=== PATIENT | male | born 1940 | race Caucasian/White ===

== ENCOUNTER 2017-02-22 10:57 | Emergency (ER) | payer OTHER ==
[~2017-02-22] VITALS: Ht 167.6 cm; Wt 89.0 kg
[~2017-02-22 10:57] MED LIST: ACET-1256 PO; AMLO10TA4 PO; ASPI81TA28 PO; ATOR10TA88 PO; FINA5TAB PO; LPR25 PO; MULT-506 PO; TAMS0.4C38 PO; ULT50X PO
[2017-02-22 10:59] VITALS: TEMP 36.4; Ht 167.6 cm; Wt 89.0 kg
[2017-02-22] MEDS ORDERED: LISI-461 PO (11:24)
--- NOTE | 2017-02-22 11:48 | DIAGNOSTIC IMAGING REPORT ---
CHEST ONE VIEW PORTABLE CLINICAL HISTORY: Altered mental status. Weakness. COMPARISON STUDY: Chest radiograph March 27, 2015 and CTA of the chest, abdomen and pelvis January 04, 2016. FINDINGS: Lung volumes are normal. No pneumothorax or pleural effusion is present. There is no evidence of pulmonary edema. Pulmonary vascularity is normal. Cardiomediastinal silhouette is stable. Left hilar prominence is noted.. IMPRESSION: 1. Left hilar prominence which has developed since prior exam. This is likely due to to pulmonary vessels however lymphadenopathy or mass could appear similar. Follow-up PA and lateral chest radiographs are recommended. 2. No acute cardiopulmonary findings. Electronically signed by: Pardeep Beltran M.D. 02/22/2017 11:47 AM Dictated Date/Time: 02/22/2017 11:44 AM
[2017-02-22 12:00] LABS: PROTHROMBIN TIME (PATIENT) 11.1 SECONDS (9.0-12.0)
--- NOTE | 2017-02-22 12:08 | DIAGNOSTIC IMAGING REPORT ---
HEAD CT NONCONTRAST CT DOSE: 638.56 mGycm HISTORY: EVALUATE ALTERED MENTAL STATUS/WEAKNESS TECHNIQUE: Multiaxial CT images of the head were performed without the use of intravenous contrast. Automated exposure control was utilized for this study. A dose lowering technique was utilized adhering to the principles of ALARA. Comparison: None. Findings: The paranasal sinuses and mastoid air cells are clear. The calvarium and skull base are intact. There is no mass, hematoma, midline shift, acute infarct. White matter hypodensity is nonspecific but suggestive of microvascular ischemic change. The ventricles and sulci demonstrate mild age-related involutional changes. Impression: No acute intracranial abnormality. Atrophy and microvascular ischemic changes. Electronically signed by: Laci Cardoza M.D. 02/22/2017 12:07 PM Dictated Date/Time: 02/22/2017 11:51 AM
[2017-02-22 12:10] LABS: ALT/SGPT 34 U/L (12-78); AST/SGOT 20 U/L (15-37); BLOOD UREA NITROGEN 18 mg/dl (7-18); BUN/CREATININE RATIO 15.1 (10-20); CALCIUM 9.6 mg/dl (8.5-10.1); CARBON DIOXIDE 28 mmol/L (21-32); CHLORIDE 106 mmol/L (98-107); GLUCOSE 101 mg/dl (70-99); MAGNESIUM 2.4 mg/dl (1.8-2.4); SODIUM 139 mmol/L (136-145)
[2017-02-22 12:14] LABS: HEMATOCRIT 43.8 % (42-52); MEAN CELL VOLUME 87.8 fL (80-100); MEAN CORPUSCULAR HEMOGLOBIN 30.9 pg (25-34); MEAN CORPUSCULAR HGB CONC 35.2 g/dl (32-36); MEAN PLATELET VOLUME 11.9 fL (7.4-10.4); PLATELET COUNT 94 K/uL (130-400); RED BLOOD COUNT 4.99 M/uL (4.7-6.1); WHITE BLOOD COUNT 7.31 K/uL (4.8-10.8)
[2017-02-22 12:18] LABS: ALKALINE PHOSPHATASE 106 U/L (45-117)
[2017-02-22 12:27] LABS: BASO % 0.5 %; BASO ABS # 0.04 K/uL (0-0.2); COMPLETE YES; EOS % 4.7 %; IG% 0.1 %; LYMPH % 28.6 %; LYMPH ABS # 2.09 K/uL (1.2-3.4); MONO % 10.8 %; NEUT % 55.3 %
[2017-02-22 12:44] LABS: URINE APPEARANCE CLEAR (CLEAR); URINE BILIRUBIN NEG (NEG); URINE COLOR YELLOW; URINE EPITHELIAL CELL AUTO 0-5 /lpf (0-5); URINE NITRITE NEG (NEG); URINE SPECIFIC GRAVITY 1.015 (1.000-1.030); UROBILINOGEN NEG (NEG); ZZUR CULT IF INDIC CLEAN CATCH NO
[2017-02-22 12:48] LABS: MANUAL MICROSCOPIC REQUIRED? NO; REVIEW REQ? NO
--- NOTE | 2017-02-22 14:21 | DIAGNOSTIC IMAGING REPORT ---
CAROTID ARTERY ULTRASOUND CLINICAL HISTORY: Dizziness. COMPARISON STUDY: None. TECHNIQUE: Real-time, grayscale, and color Doppler sonography of the carotid and vertebral arteries was performed. Images were viewed in the transverse and longitudinal planes. FINDINGS: There is mild atherosclerotic plaque. Velocity measurements are listed below. COMMON CAROTID PEAK SYSTOLIC VELOCITY (CM/S): RIGHT 48 LEFT 66 ICA PEAK SYSTOLIC VELOCITY (CM/S): RIGHT 71 LEFT 59 The systolic ratios between the internal to common carotid arteries are normal. Antegrade flow is seen in the vertebral arteries. The external carotid arteries are patent. Blood pressure in the right arm measured 140/80. Blood pressure in the left arm measured 135/75. IMPRESSION: No evidence of a hemodynamically significant stenosis. Electronically signed by: Pardeep Beltran M.D. 02/22/2017 2:20 PM Dictated Date/Time: 02/22/2017 2:18 PM
[2017-02-22] MEDS ORDERED: MECL1TAB42 PO (14:29)
--- NOTE | 2017-02-22 14:29 | EMERGENCY ROOM VISIT NOTE ---
History Report prepared by Carlita: Kenneth Patel Under the Supervision of: Dr. Gume Jara D.O. First contact with patient: 11:07 Chief Complaint: DIZZY Stated Complaint: DIZZINESS History of Present Illness The patient is a 76 year old male who presents to the Emergency Room with complaints of intermittent dizziness that last a few minutes, and it started four days ago. The patient states that he has these dizziness spells about 4-5 times per day. He states that he had an episode this morning when getting up to go to the bathroom after laying down, and he has gotten a few more since then. The patient states that it feels like the room is almost spinning. He is additionally complaining of some posterior neck pain. The patient denies any chest pain, back pain, weakness in his arms or legs, or slurred speech. He states that he has an aortic aneurysm, and he has a graft in. Source of History: patient Onset: four days ago Position: other (global) Quality: other (dizziness) Timing: intermittent Associated Symptoms: No chest pain, No back pain, No weakness Review of Systems See HPI for pertinent positives & negatives. A total of 10 systems reviewed and were otherwise negative. Past Medical & Surgical Medical Problems: (1) BPH (benign prostatic hyperplasia) (2) Chronic ITP (idiopathic thrombocytopenia) (3) CKD (chronic kidney disease), stage III (4) HLD (hyperlipidemia) (5) HTN (hypertension) (6) Intramural aortic hematoma Surgical Problems: (1) H/O repair of left rotator cuff (2) H/O repair of right rotator cuff (3) History of arthroscopy of right shoulder (4) S/P AAA repair (5) S/P left knee arthroscopy (6) S/P surgical manipulation of ankle joint (7) S/P tonsillectomy (8) S/P vasectomy Family History Cancer Heart disease Hypertension Lung disease Social History Smoking Status: Former Smoker Alcohol Use: none Drug Use: none Marital Status: Housing Status: lives with family Occupation Status: retired Current/Historical Medications Scheduled Acetaminophen (Tylenol), 1,000 MG PO PRN UD Amlodipine Besylate (Norvasc), 1 TAB PO DAILY Aspirin (Aspirin Ec), 81 MG PO DAILY Atorvastatin (Lipitor), 10 MG PO HS Finasteride (Proscar), 5 MG PO QAM Tamsulosin Hcl (Flomax), 0.4 MG PO QAM Scheduled PRN Meclizine Hcl (Meclizine Hcl), 1 TAB PO TID PRN for Dizziness or Vertigo Miscellaneous Medications Lisinopril (Zestril), 10 MG PO Allergies Coded Allergies: No Known Allergies (Unverified , 02/22/17) Physical Exam Vital Signs Date Time Temp Pulse Resp B/P (MAP) Pulse Ox O2 Delivery O2 Flow Rate FiO2 02/22/17 14:40 50 16 146/71 97 02/22/17 14:21 52 16 132/71 97 Room Air 02/22/17 13:25 52 16 135/74 94 Room Air 02/22/17 12:38 51 02/22/17 10:59 36.4 51 18 140/65 92 Room Air Physical Exam VITAL SIGNS: were reviewed as above. GENERAL:Non-toxic in appearance. SKIN: Warm dry and pink. HEAD: Normocephalic and atraumatic. OROPHARYNX: Is clear and moist NECK: Supple without lymphadenopathy or meningismus. LUNGS: clear. HEART: Regular rate and rhythm. ABDOMEN: Soft and nontender. EXTREMITIES: Warm and well perfused. NEUROLOGICALLY: Awake alert and oriented without focal deficit. Cranial nerves 2 -12 are intact. There is no pronator drift. Cerebellar testing is within normal limits. There is no nystagmus. There is no facial droop. Speech is clear. Vision is grossly normal. MUSCULOSKELETAL: Good muscle tone. No evidence of trauma. Medical Decision & Procedures ER Provider Diagnostic Interpretation: Radiology results as stated below per my review and radiologist interpretation: HEAD CT NONCONTRAST CT DOSE: 638.56 mGycm HISTORY: EVALUATE ALTERED MENTAL STATUS/WEAKNESS TECHNIQUE: Multiaxial CT images of the head were performed without the use of intravenous contrast. Automated exposure control was utilized for this study. A dose lowering technique was utilized adhering to the principles of ALARA. Comparison: None. Findings: The paranasal sinuses and mastoid air cells are clear. The calvarium and skull base are intact. There is no mass, hematoma, midline shift, acute infarct. White matter hypodensity is nonspecific but suggestive of microvascular ischemic change. The ventricles and sulci demonstrate mild age-related involutional changes. Impression: No acute intracranial abnormality. Atrophy and microvascular ischemic changes. Electronically signed by: Laci Cardoza M.D. 02/22/2017 12:07 PM Dictated Date/Time: 02/22/2017 11:51 AM CHEST ONE VIEW PORTABLE CLINICAL HISTORY: Altered mental status. Weakness. COMPARISON STUDY: Chest radiograph March 27, 2015 and CTA of the chest, abdomen and pelvis January 04, 2016. FINDINGS: Lung volumes are normal. No pneumothorax or pleural effusion is present. There is no evidence of pulmonary edema. Pulmonary vascularity is normal. Cardiomediastinal silhouette is stable. Left hilar prominence is noted.. IMPRESSION: 1. Left hilar prominence which has developed since prior exam. This is likely due to to pulmonary vessels however lymphadenopathy or mass could appear similar. Follow-up PA and lateral chest radiographs are recommended. 2. No acute cardiopulmonary findings. Electronically signed by: Pardeep Beltran M.D. 02/22/2017 11:47 AM Dictated Date/Time: 02/22/2017 11:44 AM CAROTID ARTERY ULTRASOUND CLINICAL HISTORY: Dizziness. COMPARISON STUDY: None. TECHNIQUE: Real-time, grayscale, and color Doppler sonography of the carotid and vertebral arteries was performed. Images were viewed in the transverse and longitudinal planes. FINDINGS: There is mild atherosclerotic plaque. Velocity measurements are listed below. COMMON CAROTID PEAK SYSTOLIC VELOCITY (CM/S): RIGHT 48 LEFT 66 ICA PEAK SYSTOLIC VELOCITY (CM/S): RIGHT 71 LEFT 59 The systolic ratios between the internal to common carotid arteries are normal. Antegrade flow is seen in the vertebral arteries. The external carotid arteries are patent. Blood pressure in the right arm measured 140/80. Blood pressure in the left arm measured 135/75. IMPRESSION: No evidence of a hemodynamically significant stenosis. Electronically signed by: Pardeep Beltran M.D. 02/22/2017 2:20 PM Dictated Date/Time: 02/22/2017 2:18 PM Laboratory Results 02/22/17 11:30 Red Blood Count 4.99, Mean Corpuscular Volume 87.8, Mean Corpuscular Hemoglobin 30.9, Mean Corpuscular Hemoglobin Concent 35.2, Mean Platelet Volume 11.9, Neutrophils (%) (Auto) 55.3, Lymphocytes (%) (Auto) 28.6, Monocytes (%) (Auto) 10.8, Eosinophils (%) (Auto) 4.7, Basophils (%) (Auto) 0.5, Neutrophils # (Auto ) 4.04, Lymphocytes # (Auto) 2.09, Monocytes # (Auto) 0.79, Eosinophils # (Auto ) 0.34, Basophils # (Auto) 0.04 02/22/17 11:30 Test 02/22/17 11:30 02/22/17 11:56 White Blood Count 7.31 K/uL (4.8-10.8) Red Blood Count 4.99 M/uL (4.7-6.1) Hemoglobin 15.4 g/dL (14.0-18.0) Hematocrit 43.8 % (42-52) Mean Corpuscular Volume 87.8 fL (80-100) Mean Corpuscular Hemoglobin 30.9 pg (25-34) Mean Corpuscular Hemoglobin Concent 35.2 g/dl (32-36) Platelet Count 94 K/uL (130-400) Mean Platelet Volume 11.9 fL (7.4-10.4) Neutrophils (%) (Auto) 55.3 % Lymphocytes (%) (Auto) 28.6 % Monocytes (%) (Auto) 10.8 % Eosinophils (%) (Auto) 4.7 % Basophils (%) (Auto) 0.5 % Neutrophils # (Auto) 4.04 K/uL (1.4-6.5) Lymphocytes # (Auto) 2.09 K/uL (1.2-3.4) Monocytes # (Auto) 0.79 K/uL (0.11-0.59) Eosinophils # (Auto) 0.34 K/uL (0-0.5) Basophils # (Auto) 0.04 K/uL (0-0.2) RDW Standard Deviation 40.6 fL (36.4-46.3) RDW Coefficient of Variation 12.7 % (11.5-14.5) Immature Granulocyte % (Auto) 0.1 % Immature Granulocyte # (Auto) 0.01 K/uL (0.00-0.02) Prothrombin Time 11.1 SECONDS (9.0-12.0) Prothromb Time International Ratio 1.0 (0.9-1.1) Activated Partial Thromboplast Time 24.7 SECONDS (21.0-31.0) Partial Thromboplastin Ratio 1.0 Anion Gap 5.0 mmol/L (3-11) Est Creatinine Clear Calc Drug Dose 53.9 ml/min Estimated GFR () 67.2 Estimated GFR (Non- 58.0 BUN/Creatinine Ratio 15.1 (10-20) Calcium Level 9.6 mg/dl (8.5-10.1) Magnesium Level 2.4 mg/dl (1.8-2.4) Total Bilirubin 1.0 mg/dl (0.2-1) Direct Bilirubin 0.3 mg/dl (0-0.2) Aspartate Amino Transf (AST/SGOT) 20 U/L (15-37) Alanine Aminotransferase (ALT/SGPT) 34 U/L (12-78) Alkaline Phosphatase 106 U/L (45-117) Total Creatine Kinase 108 U/L (39-308) Creatine Kinase MB 2.2 ng/ml (0.5-3.6) Creatine Kinase MB Ratio 2.0 (0-3.0) Troponin I < 0.015 ng/ml (0-0.045) Total Protein 7.2 gm/dl (6.4-8.2) Albumin 4.1 gm/dl (3.4-5.0) Lipase 115 U/L (73-393) Thyroid Stimulating Hormone (TSH) 1.920 uIu/ml (0.300-4.500) Urine Color YELLOW Urine Appearance CLEAR (CLEAR) Urine pH 7.0 (4.5-7.5) Urine Specific [place] 1.015 (1.000-1.030) Urine Protein NEG (NEG) Urine Glucose (UA) NEG (NEG) Urine Ketones NEG (NEG) Urine Occult Blood NEG (NEG) Urine Nitrite NEG (NEG) Urine Bilirubin NEG (NEG) Urine Urobilinogen NEG (NEG) Urine Leukocyte Esterase NEG (NEG) Urine WBC (Auto) 0 /hpf (0-5) Urine RBC (Auto) 0-4 /hpf (0-4) Urine Hyaline Casts (Auto) 0 /lpf (0-5) Urine Epithelial Cells (Auto) 0-5 /lpf (0-5) Urine Bacteria (Auto) NEG (NEG) Laboratory results as stated above per my review. ECG Indication: other (dizziness) Rate (beats per minute): 50 Rhythm: sinus bradycardia Findings: no ectopy, other (No injury) ED Course 1107: Previous medical records were reviewed. The patient was evaluated in room A10. A complete history and physical examination was performed. 1445: On reevaluation, the patient is doing well. I discussed the results and findings with the patient. He verbalized agreement of the treatment plan. He was discharged home. Medical Decision Differential includes acute coronary syndrome, myocardial infarction, CVA, TIA, anemia, infection, pneumonia, UTI, pyelonephritis, poor nutrition, dehydration, electrolyte disturbance,hypoglycemia. This is a 76-year-old male who presents to the ED with a chief complaint of dizziness. The patient reports some intermittent dizziness since Saturday. He states that it comes for a couple minutes and then goes away. He has had about 4-5 times per day. He states that it is random in occurrence and nothing specifically causes it to occur. He states that today it happened in the morning when he got up to go the bathroom. It also occurred while he was sitting here in the emergency department. The dizziness is described as a sensation that the room is ready to spin. He states that he is able to walk with it but he staggers a little when it occurs. He states that he did not have the symptoms at all yesterday. His vital signs are stable. A complete physical and neurologic exam did not reveal any obvious abnormalities. An EKG shows a sinus bradycardia rate of 50. No acute injury. Chest x-ray reveals some left hilar prominence that was not seen on a previous chest x-ray. A follow-up chest x-ray was recommended. CBC, complete metabolic panel are normal. Troponin is negative. TSH was normal. Carotid ultrasounds did not show any hemodynamically significant abnormalities. The patient was told the results. He is felt to be stable for discharge and outpatient follow-up. Medication Reconcilliation Current Medication List: was personally reviewed by me Blood Pressure Screening Patient's blood pressure: Elevated blood pressure Blood pressure disposition: Elevated BP felt to be situational Impression Primary Impression: Dizziness Scribe Attestation The scribe's documentation has been prepared under my direction and personally reviewed by me in its entirety. I confirm that the note above accurately reflects all work, treatment, procedures, and medical decision making performed by me. Departure Information Dispostion Home / Self-Care Prescriptions Meclizine Hcl (MECLIZINE HCL) 25 Mg Tab 1 TAB PO TID Y for Dizziness or Vertigo for 10 Days, #30 TAB Prov: Gume Jara D.O. 02/22/17 Referrals Radha Giang D.O. (PCP) Forms HOME CARE DOCUMENTATION FORM, IMPORTANT VISIT INFORMATION Patient Instructions Dizziness Vertigo Balance Safety, Dizziness Vertigo Inner Ear, My [facility] Additional Instructions Follow-up chest xray was recommended by radiology services. See your doctor to schedule this. Meclizine as needed for dizziness. Follow-up with your doctor for further care and evaluation in 1-5 days. Return to the emergency department for worsening or new symptoms or any concerns. You have been examined and treated today on an emergency basis only. This is not a substitute for, or an effort to provide, complete comprehensive medical care. It is impossible to recognize and treat all injuries or illnesses in a single emergency department visit. It is therefore important that you follow up closely with your doctor. Call as soon as possible for an appointment.
[2017-02-22 14:40] VITALS: BP 146/71; PULSE 50; O2SAT 97
== END 2017-02-22 14:41 | disposition home or self-care (01) ==
LOC: C.EDB 10:58 → C.EDA 14:41
DX: R42 Dizziness and giddiness (principal); R00.1 Bradycardia, unspecified; I12.9 Hypertensive chronic kidney disease with stage 1 through stage 4 chronic kidney disease, or unspecified chronic kidney disease; N18.3 Chronic kidney disease, stage 3 (moderate); E78.5 Hyperlipidemia, unspecified; D69.3 Immune thrombocytopenic purpura; Z98.890 Other specified postprocedural states; Z87.891 Personal history of nicotine dependence; Z79.82 Long term (current) use of aspirin; Z79.899 Other long term (current) drug therapy; Z80.9 Family history of malignant neoplasm, unspecified; Z82.49 Family history of ischemic heart disease and other diseases of the circulatory system